=== PATIENT | female | born 1970 | race Caucasian/White ===

== ENCOUNTER 2022-12-10 12:13 | Day surgery (SDC) | payer OTHER ==
[2022-12-10] VITALS (8 sets, daily range): BP systolic 98–132; BP diastolic 59–86; PULSE 56–67; TEMP 98.3
[~2022-12-10] VITALS: Ht 170.2 cm; Wt 66.9 kg
[2022-12-10 12:39] LABS: HEMATOCRIT 41.1 % (37.0-47.0); HEMOGLOBIN 13.8 g/dl (12.5-16.0); MEAN CELL VOLUME 96 fl (80.0-100.0); MEAN CORPUSCULAR HEMOGLOBIN 32 pg (27-31); MEAN CORPUSCULAR HGB CONC 34 g/dl (33.0-37.0); MEAN PLATELET VOLUME 10.3 fl (7.4-10.4); PLATELET COUNT 162 K/mm3 (130-400); RED BLOOD COUNT 4.29 M/mm3 (4.10-5.30); REDCELL DISTRIBUTION WIDTH-CV 14.3 % (11.5-14.5)
[2022-12-10 12:50] LABS: INR 1.1 (0.8-3.0); PROTHROMBIN TIME 11.4 SECONDS (9.7-12.8)
[2022-12-10 12:52] LABS: PARTIAL THROMBOPLASTIN TIME 30.8 SECONDS (26.0-37.0)
[2022-12-10 12:54] LABS: CALCIUM 8.9 mg/dL (8.4-10.2); CREATININE, serum 0.71 mg/dL (0.57-1.11); POTASSIUM 3.7 mmol/L (3.5-4.5)
[2022-12-10] MEDS ORDERED: OXYCONTIN 10MG10 MG PO (13:04)
[2022-12-10] MEDS ORDERED: NORCO 325 MG-51 TAB PO (13:05)
[2022-12-10] MEDS ORDERED: RANEXA1000 MG PO (13:06)
[2022-12-10] MEDS ORDERED: XANAX 0.5MG0.5 MG PO (13:06)
[2022-12-10] MEDS ORDERED: PLAVIX 75MG TAB75 MG PO (13:07)
[2022-12-10] MEDS ORDERED: LIPITOR 40MG TA40 MG PO (13:07)
[2022-12-10] MEDS ORDERED: KAPSPARGO SPRIN25 MG PO (13:08)
[2022-12-10] MEDS ORDERED: NITROSTAT0.4 MG/TAB SL (13:09)
[2022-12-10] MEDS ORDERED: NARCAN4 MG NS (13:09)
--- NOTE | 2022-12-10 14:14 | NUR ---
Refer to merge hemodynamic report for procedural notes, and anesthesia note for medication
--- NOTE | 2022-12-10 17:53 | NUR ---
Pt ambulated to [facility] accompanied by and son. Pt is Scheduled for a [facility]. IV started, labs drawn. EKG done. Meds and HX reviewed with the pt. Consent form for the procedure signed. Pt was taken to the [facility] for the procedure. Post-procedure pt came back to [facility] to recover. Food was ordered for the pt and the pt was given a sprite to drink. Pt was bedrest for 2 hrs, at the start of hr 3 air was released from the radial band 2 mls about every 15 minutes. The right radial punture site was clean, dry, and intact during the recovery process. Once all the air was released the pt was given discharge education and information. No questions at this time. Prior to discharge right radial site was checked again, clean, dry, and intact. A band-aid was then applied to the site and the deflated band was placed back on as a reminder to limit the use of the wrist. Pt exited the unit by wheelchair to husbands car.
== END 2022-12-10 18:08 | disposition home or self-care (01) ==
LOC: COL.CAR 12:13
PROVIDERS: Internal Medicine Interventional Cardiology
DX: R07.9 Chest pain, unspecified (principal); R94.39 Abnormal result of other cardiovascular function study; I10 Essential (primary) hypertension; R06.02 Shortness of breath; Z79.899 Other long term (current) drug therapy; F17.210 Nicotine dependence, cigarettes, uncomplicated
CPT/HCPCS: J1200; J1644; J2250; J2704; Q9967